=== PATIENT | female | born 1940 | race Caucasian/White ===

== ENCOUNTER 2017-02-25 21:51 | Inpatient (IN) | payer MEDICARE, OTHER ==
[~2017-02-25] VITALS: Ht 165.1 cm; Wt 80.2 kg
[~2017-02-25 21:51] MED LIST: CHLORHEXIDINE GLUCONATE 0.12 % 15ML UDC (PERIDEX ORAL RINSE) MT SCH; IPRATROPIUM 0.5MG/ALBUTEROL 2.5MG INH SOL UD 3ML (DUONEB)(J7620) NEB SCH
[2017-02-25] MEDS ORDERED: SODIUM BICARBONATE 8.4% INJ 50 ML SYRINGE IV STA (22:03)
[2017-02-25] MEDS ORDERED: ATROPINE SULF 1MG/10ML SYRINGE (J0461) IV STA (22:06)
[2017-02-25] MEDS ORDERED: NS 500 ML IV ONE (22:15)
[2017-02-25] MEDS ORDERED: NOREPINEPHRINE BITARTRATE 8 MG in D5W 500 ML IV SCH (22:15)
[2017-02-25 22:22] LABS: BASO # 0.1 K/mm3 (0.0-0.2); EOS # 0.1 K/mm3 (0.0-0.50); EOS % 1.2 % (0.0-3.0); LARGE UNSTAINED CELL # 0.1 K/mm3 (0.0-0.4); LARGE UNSTAINED CELL % 1.8 % (0.0-4.0); LYMPH # 4.9 K/mm3 (1.5-4.5); LYMPH % 61.6 % (24.0-44.0); MEAN CORPUSCULAR HEMOGLOBIN 33.4 pg (27.0-33.0); MEAN CORPUSCULAR HGB CONC 30.4 g/dl (32.0-36.5); MEAN CORPUSCULAR VOLUME 109.8 fl (80.0-96.0); MONO # 0.2 K/mm3 (0.0-0.8); MONO % 1.9 % (0.0-5.0); NEUTROPHILS # 2.6 K/mm3 (1.8-7.7); NEUTROPHILS % 32.5 % (36.0-66.0); PLATELET COUNT, AUTOMATED 124 k/mm3 (150-450); RED CELL DISTRIBUTION WIDTH 12.2 % (11.5-14.5); WHITE BLOOD COUNT 7.9 K/mm3 (4.0-10.0)
[2017-02-25 22:23] LABS: ADD MORPHOLOGY? YES
--- NOTE | 2017-02-25 22:31 | REP ---
Clinical: Chest pain. Comparison: 12/12/2008. Findings: Endotracheal tube approximately 2.3 cm above the andrez. Mediastinum and cardiac silhouette are within normal limits and stable. Lung beatty demonstrate chronic interstitial changes and superimposed left lower lobe and medial right basilar atelectasis cannot be excluded. No effusion. No pneumothorax. Skeletal structures demonstrate left 4th lateral rib fracture and possible right 4th lateral rib fracture. Impression: Suspected basilar atelectasis. Lateral left fourth rib fracture and suspected lateral right fourth rib fracture. Signed by Ramy Beck MD 02/25/2017 10:22 P
[2017-02-25 22:43] LABS: ABG BASE EXCESS -17.5 (-2.0-2.0); ABG TOTAL CO2 17.2 MEQ/L (23.0-31.0)
[2017-02-25 22:45] LABS: CALCIUM LEVEL 9.6 MG/DL (8.8-10.2); CREATININE FOR GFR 1.64 MG/DL (0.55-1.02); GLOMERULAR FILTRATION RATE 32.4 (>39); POTASSIUM SERUM 3.9 MEQ/L (3.5-5.1)
[2017-02-25] MEDS ORDERED: PIPERACILLIN/TAZOBACTAM SOD 3.375 GM in D5W MINI-BAG PLUS 50 ML IV ONE (22:45)
[2017-02-25 22:46] LABS: ABG PARTIAL PRESSURE CO2 73.4 mmHg (35.0-45.0); ABG pH (ARTERIAL) 6.927 UNITS (7.350-7.450)
[2017-02-25 22:52] LABS: HYPOCHROMASIA 1+
[2017-02-25] MEDS ORDERED: OMEP40CA2 PO (23:15)
[2017-02-25] MEDS ORDERED: ASPI81TAEC PO (23:15)
[2017-02-25] MEDS ORDERED: LOSA100T36 PO (23:15)
[2017-02-25] MEDS ORDERED: TUMS500C PO (23:15)
[2017-02-25] MEDS ORDERED: VASOPRESSIN INJ 20 UNITS/ML VIAL As Ordered ONE (23:23)
[2017-02-25] MEDS ORDERED: VASOPRESSIN INJ 20 UNITS in NS 500 ML IV SCH (23:30)
[2017-02-26] VITALS (36 sets, daily range): BP systolic 31–73; BP diastolic 20–49
[2017-02-26] MEDS ORDERED: DOBUTamine 500 MG/250 ML BAG IN D5W (2,000 MCG/ML) (J1250) As Ordered ONE (00:22)
[2017-02-26] MEDS ORDERED: VASOPRESSIN INJ 20 UNITS in NS 500 ML IV SCH (01:00)
[2017-02-26] MEDS ORDERED: NOREPINEPHRINE BITARTRATE 8 MG in D5W 500 ML IV SCH ×2 (01:00→01:19)
[2017-02-26] MEDS ORDERED: DOBUTamine HCL 500,000 MCG in APPROPRIATE DILUENT 1 EA IV SCH (01:00)
[2017-02-26] MEDS ORDERED: PIPERACILLIN/TAZOBACTAM SOD 3.375 GM in D5W MINI-BAG PLUS 50 ML IV SCH ×2 (01:00→03:00)
[2017-02-26] MEDS ORDERED: DOPamine HCL 400 MG in APPROPRIATE DILUENT 1 EA IV SCH ×2 (01:00→01:15)
[2017-02-26] MEDS ORDERED: GLUCOSE 4 GM CHEW TABLET PO PRN (01:15)
[2017-02-26] MEDS ORDERED: GLUCAGON FOR INJ 1 MG VIAL (J1610) SC PRN (01:15)
[2017-02-26] MEDS ORDERED: DEXTROSE 50% 50 ML SYRINGE IV PRN (01:15)
[2017-02-26 01:49] LABS: ABG BASE EXCESS -16.9 (-2.0-2.0); ABG HCO3 14.5 MEQ/L (22.0-26.0); ABG PARTIAL PRESSURE O2 67.9 mmHg (75.0-100.0); ABG STANDARD HCO3 11.4 MEQ/L (22.0-26.0); ABG TOTAL CO2 16.4 MEQ/L (23.0-31.0)
[2017-02-26 01:52] LABS: ABG PARTIAL PRESSURE CO2 62.3 mmHg (35.0-45.0); ABG pH (ARTERIAL) 6.985 UNITS (7.350-7.450)
[2017-02-26] MEDS ORDERED: EPINEPHrine 1MG/10ML SYRINGE 1.5IN ONE (02:01)
[2017-02-26] MEDS ORDERED: DOPamine 400 MG/500 ML BAG IN D5W (800MCG/ML) (J1265) ONE (02:01)
[2017-02-26] MEDS ORDERED: NOREPINEPHRINE 4 MG/4 ML AMP ONE (02:01)
[2017-02-26] MEDS ORDERED: ATROPINE SULF 1MG/10ML SYRINGE (J0461) ONE (02:01)
[2017-02-26] MEDS ORDERED: SODIUM BICARBONATE 8.4% INJ 50 ML SYRINGE ONE (02:01)
[2017-02-26 02:26] LABS: ALBUMIN 1.9 GM/DL (3.2-5.2); ALBUMIN/GLOBULIN RATIO 0.76 (1.00-1.93); BILIRUBIN,TOTAL 0.5 MG/DL (0.2-1.0); CALCIUM LEVEL 7.8 MG/DL (8.8-10.2); CREATININE FOR GFR 1.87 MG/DL (0.55-1.02); GLOMERULAR FILTRATION RATE 27.9 (>39); TOTAL PROTEIN 4.4 GM/DL (6.4-8.2)
[2017-02-26 02:45] LABS: PHOSPHORUS LEVEL 8.9 MG/DL (2.5-4.9)
[2017-02-26] MEDS: HumaLOG INSULIN (NovoLOG) PER UNIT SC SCH ×2 (02:49→05:57)
[2017-02-26] MEDS ORDERED: SODIUM BICARBONATE 8.4% INJ 50 ML SYRINGE IV ONE (03:15)
[2017-02-26] MEDS ORDERED: HumuLIN R (REGULAR) INSULIN (NovoLIN R) **100U/ML** PER UNIT SC ONE (03:15)
[2017-02-26] MEDS: DOPamine HCL 400 MG in APPROPRIATE DILUENT 1 EA IV SCH ×2 (03:22→05:06)
[2017-02-26] MEDS ORDERED: NS 1,000 ML IV ONE (04:30)
[2017-02-26] MEDS ORDERED: HumaLOG INSULIN (NovoLOG) PER UNIT SC ONE (06:00)
[2017-02-26 06:05] LABS: ADD MANUAL DIFFER YES; DIFF SLIDE NUMBER 112; MEAN CORPUSCULAR HGB CONC 30.1 g/dl (32.0-36.5); MEAN CORPUSCULAR VOLUME 109.7 fl (80.0-96.0); PLATELET COUNT, AUTOMATED 116 k/mm3 (150-450); RED CELL DISTRIBUTION WIDTH 12.3 % (11.5-14.5); WHITE BLOOD COUNT 3.2 K/mm3 (4.0-10.0)
--- NOTE | 2017-02-26 06:12 | RO ---
DATE OF PROCEDURE: 02/26/2017 PREOPERATIVE DIAGNOSIS: Pneumothorax. POSTOPERATIVE DIAGNOSIS: Pneumothorax. PROCEDURE: Left chest tube. SURGEON: Dr. Melo Boyce MATERNITY NURSE:None ANESTHESIA: patient was comatose DESCRIPTION OF PROCEDURE: The patient had hypoxia and had a deep sulcus on chest x-ray. I therefore placed a chest tube at bedside urgently as her had given me permission to perform all urgent emergent procedures in order to save her life. The left lateral chest wall was prepped with Betadine. An incision was made in the fifth intercostal space. Metzenbaum forceps were used to spread the tissue, the forceps were placed over the ribs and popped into the pleural space with a lopez air. A #32 Japanese chest tube was then placed and hooked up to suction. There is a positive air leak. This was sutured in place with a mattress suture at 16 cm. A chest x-ray confirmed adequate position. Oxygen saturations improved after placement. Gauze dressing was then placed over the site. There were no observed complications. JARVIS
--- NOTE | 2017-02-26 06:14 | RO ---
DATE OF PROCEDURE: 02/25/2017 PREOPERATIVE DIAGNOSIS: Hypotension. POSTOPERATIVE DIAGNOSIS: Hypotension. PROCEDURE: Left internal jugular vein venous triple-lumen catheter placement. SURGEON: Dr. Melo Boyce MORTGAGE COORDINATOR: None. ANESTHESIA: The patient was comatose on mechanical ventilation. The left internal jugular (IJ) was prepped and draped in a sterile manner with chlorhexidine and full barrier precaution. A time-out was performed identifying correct site and correct procedure with two patient identifiers. The left IJ was then identified under ultrasound and the Shirin syringe was easily passed into the IJ with return of venous blood flow. A wire was fed through the needle easily and the needle was removed. The triple-lumen catheter was then placed via modified Seldinger technique. All three ports returned venous blood flow and flushed easily. This was sutured in at 15 cm. A postprocedure chest x-ray shows adequate placement with the tip of the catheter in the superior vena cava (SVC). There were no observed complications. JARVIS
--- NOTE | 2017-02-26 06:18 | RO ---
DATE OF PROCEDURE: 02/26/2017 PREOPERATIVE DIAGNOSIS: Hypoxia and aspiration. POSTOPERATIVE DIAGNOSIS: Hypoxia and aspiration. PROCEDURE: Endotracheal intubation. SURGEON: Dr. Melo Boyce POWER WASHER: None ANESTHESIA: comatose on vent DESCRIPTION OF PROCEDURE: The patient had a 7.0 endotracheal tube that was placed in the field that was fairly bloody. The patient had hypoxia. I was unable to perform bronchoscopy through the endotracheal tube. Therefore, this was switched over. The patient was extubated. Oxygen saturations remained above 90% bagged. Then, I intubated the patient with a glide scope with a grade one view. An 8.0 endotracheal tube was easily passed through the vocal cords and the stylus was removed. Confirmation was performed with end-tidal CO2 monitoring, auscultation and chest x-ray. There were no observed complications. The endotracheal tube was taped into place at 24 at the lip. MTDD
[2017-02-26 06:28] LABS: INR 13.57
--- NOTE | 2017-02-26 06:28 | RO ---
DATE OF PROCEDURE: 02/26/2017 PREOPERATIVE DIAGNOSIS: Hypotension POSTOPERATIVE DIAGNOSIS: Hypotension PROCEDURE: Left fermoral arterial catheter placement SURGEON: Dr. Melo Boyce PAYROLL BENEFITS CLERK: Dr. Rebeca Mcclelland ANESTHESIA: The patient was comatose on mechanical ventilation. The left femoral artery was prepped and draped in a sterile manner. Chlorhexidine and sterile barrier precaution was used. The Arrow femoral artery kit was used. The needle with syringe was advanced into the femoral artery under ultrasound guidance. There was return of pulsatile blood flow and a wire was fed through the needle. A luis in the skin was made over the wire. The needle was removed. The catheter was placed over the wire via modified Seldinger technique. There continued be a good pulsatile flow. This was hooked up to an arterial monitor. Blood pressure had correlated with peripheral pressure which was severely low, 40 systolic, being on three pressors. No observed complications. The line was sutured in place and an impregnated sterile dressing was placed over the site. JARVIS
[2017-02-26 06:29] LABS: ALBUMIN 1.2 GM/DL (3.2-5.2); ALBUMIN/GLOBULIN RATIO 0.75 (1.00-1.93); BILIRUBIN,TOTAL 0.6 MG/DL (0.2-1.0); CREATININE FOR GFR 2.06 MG/DL (0.55-1.02); GLOMERULAR FILTRATION RATE 24.9 (>39); PHOSPHORUS LEVEL 6.9 MG/DL (2.5-4.9); POTASSIUM SERUM 4.1 MEQ/L (3.5-5.1); TOTAL PROTEIN 2.8 GM/DL (6.4-8.2)
--- NOTE | 2017-02-26 06:38 | CCN ---
DATE: 02/26/2017 TIME SEEN: About 2 a.m. SUBJECTIVE: The patient has been seen and examined at bedside. The patient continues to be intubated and the patient's blood pressure continues to remain low with a mean arterial pressure (MAP) of only in the 40s despite on 4 pressors. Constant presence at the bedside for critical illness was required, the most pressing is the severity of her cardiogenic shock. Her pupils remain fixed and dilated and there has been no significant neurologic recovery. OBJECTIVE: VITAL SIGNS: Temperature 91, pulse 93, respirations 20, blood pressure 54/32. Oxygen was saturating at 95% on ventilator setting volume controlled tidal volume 400, respiratory rate of 16, PEEP of 5, and FiO2 of 100%. GENERAL: The patient continues to be intubated and in comatose, lying in the intensive care unit (ICU) bed with head elevated at 30 degrees. HEENT: The patient does have abrasion to the right forehead. Pupils were fixed and dilated at least 6 mm bilaterally. Mucous membranes moist. NECK: Supple with a left-sided internal jugular triple lumen catheter (IJTLC). Dressing was dry, clean and intact. CARDIOVASCULAR: Tachycardic. Normal S1, S2. LUNGS: Show diffuse rhonchi bilaterally. Chest tube was in place to the left side. Dressing was dry, clean and intact. ABDOMEN: Positive bowel sounds. Soft, nondistended. No peritoneal signs. No ecchymosis. EXTREMITIES: Appear to be cyanotic, which were cold to palpation. NEUROLOGIC: The patient appears to be comatose. LABORATORY DATA: Sodium 137, potassium 5., chloride 103, bicarbonate 19, anion gap 15, BUN 32, creatinine 1.87, GFR 27.9, fasting glucose 526, calcium 7.8, phosphorus 8.9. Total bilirubin 0.5, AST 736, ALT 537. LDH 975. Total CK 686. Total protein 4.4, albumin 1.9. EKG showed RBBB, with widened QRS and with possible ventricular rhythm, however on telemetry she was sinus rhythm CURRENT MEDICATIONS: - Lovenox 40 mg subcutaneous daily - Protonix 40 mg intravenous (IV) daily - Zosyn 3.375 grams IV every eight hours The patient is also currently on Levophed drip, vasopressin drip, dobutamine drip, dopamine drip. She is receiving insulin sliding scale subcutaneously every six hours, as well as hypoglycemic protocol with D50 and Glucagon glucose as needed. ASSESSMENT AND PLAN: A 76-year-old female with past medical history of hypertension and esophageal stenosis presented with: 1. Cardiopulmonary arrest. Blood pressure continues to remain below threshold MAP <65. Continue for dopamine, dobutamine, vasopressin, Norepi drips. Echocardiogram has been performed. Only shows minimal pericardial effusion. No tamponade. Ejection fraction appears to be greater than 60% by visual estimate. However, official report is pending. Will followup. Will continue to trend troponin. Continue to monitor for possible cardiac arrhythmia on telemetry. 2. Cardiogenic shock. Continue dobutamine drip. However, at this point, blood pressure remains low. Mean arterial pressure (MAP) was only around 40. 3. Aspiration pneumonia. Continue Zosyn. 4. Left-sided pneumothorax. Continue to monitor left-sided chest tube. 5. Hitting on the right side of the head. Could not rule out intracranial bleed. The patient could not undergo CT due to unstable. Continue to hold aspirin. 6. Severe metabolic acidosis. Anion gap does show improvement. However, due to patient's blood pressure is below 65, the likelihood for acidosis to improve is low at this point. 7. Acute renal failure appears to be worse. Creatinine is 1.87 from 1.6. We will continue to monitor intake and output. 8. Hyperglycemia with glucose 526. Continue insulin sliding scale, 10 units of regular insulin were given. Will follow. 9. Coma likely secondary to anoxic brain injury. Continue neurologic checks. 10. Shock liver. The patient now has elevated aspartate transaminase (AST) and alanine transaminase (ALT), likely secondary to cardiogenic shock and cardiopulmonary arrest. Continue to trend. 11. Deep venous thrombosis (DVT) prophylaxis with Lovenox. Gastrointestinal (GI) prophylaxis with Protonix. CODE STATUS: DO NOT RESUSCITATE (DNR). The patient's wishes not to resuscitate the patient if she has another cardiac arrest. TOTAL CRITICAL CARE TIME: At least one hour excluding procedure time. The patient has been discussed with attending doctor, Dr. Boyce. My preceptor for this patient encounter was Dr. Boyce. The preceptor was physically present in the room during the encounter and was fully available as needed. All aspects of the patient interview, examination, medical decision making process, and medical care plan development were reviewed and approved by the preceptor. The preceptor is aware and concurs with the plan as stated in the body of this note and will attest to such by his/her co-signature. I, Melo Boyce, conducted and independent history and bedside physical exam and agree with the assessment and plan as outlined above. I do not expect the patient to survive and is at high risk becuase of the severity of her cardiogenic shock. JARVIS
[2017-02-26 06:39] LABS: BANDS 13 % (< 11); HYPOCHROMASIA 3+; NUCLEATED RED BLOOD CELL 1 % (0-0)
--- NOTE | 2017-02-26 07:21 | HPE ---
DATE OF ADMISSION: 02/25/2017 TIME SEEN: Around 22:30. PRIMARY CARE PROVIDER: Dr. Alfred Mendez in [place]. CHIEF COMPLAINT: Cardiopulmonary arrest. HISTORY OF PRESENT ILLNESS: A 76-year-old female with past medical history of hypertension and esophageal stenosis, presented with cardiopulmonary arrest. Critical care pulmonary service was emergently paged at around 10:30. By the time we arrived in the emergency room, the patient was already was intubated in the emergency room and received 10 rounds of epinephrine. According to nursing staff, the patient initially vomited at home and then had cardiac arrest. The patient's started cardiopulmonary resuscitation (CPR) before emergency medical services (EMS) arrival, the patient received one shock initially due to possible ventricular fibrillation (V-fib) versus ventricular tachycardia (V-tac). Afterward, the patient went into PEA and received eight rounds of epinephrine due to patient. While patient was in the emergency room, she received two more rounds of epinephrine. She also received 1 mg of atropine due to heart rate was in the 40s , and 1 ampule of bicarbonate. In addition, the patient received calcium replacement before presentation and also 300 mg of amiodarone, and the patient was placed on dopamine drip at 10 mcg/kg. The patient was placed on mechanical ventilations by the ED. By the time Dr. Boyce and I arrived, the patient was still saturating at 80s and had a repeat chest x-ray which showed a deep sulcus sign on the left side. Therefore, emergent chest tube was placed. The patient's saturation immediately improved afterward, and was then transferred to the intensive care unit (ICU). According to patient's who was present during the resuscitation, who stated the patient only had hypertension and esophageal stenosis which required regular dilation every few years, and according to him, the patient has been feeling heartburn for the past three weeks. In the evening around 7 p.m., the patient felt nauseous and vomiting around 8 p.m., before right before the event. Patient's denies patient has significant cardiac history in the past. However, he stated patient did have abnormal Echo 7 years ago, but cardiac cath afterward was "fine." ALLERGIES: The patient is allergic to PENICILLIN with unspecified reaction. HOME MEDICATIONS: - aspirin 81 mg one tablet by mouth daily - calcium carbonate 1500 mg one tablet by mouth as needed - losartan potassium 50 mg one tablet by mouth twice a day - omeprazole 40 mg one tablet by mouth daily as needed PAST MEDICAL HISTORY: Including hypertension and esophageal stenosis. PAST SURGICAL HISTORY: The patient did have a cardiac catheterization several years ago. According to , the results did not show any significant coronary artery disease. However, the patient did have an abnormal echocardiogram right before the cardiac catheterization. SOCIAL HISTORY: Could not be obtained due to patient was unresponsive. FAMILY HISTORY: Could not be obtained. REVIEW OF SYSTEMS: Could not be obtained due to patient was unresponsive, was likely in coma. PHYSICAL EXAMINATION: VITAL SIGNS: Temperature 91, pulse 93, blood pressure 95/51, oxygen saturation at 85% on mechanical ventilation with volume control at a volume of 360, respiratory rate 18, PEEP 5, FiO2 100%. GENERAL: The patient is intubated and unresponsive. Elderly female who was lying at 30 degrees in the emergency department (ED) bed. HEENT: The patient does have an abrasion at the right side of her forehead. Extraocular motor could not be assessed. The patient, however, does have fixed pupils which were dilated to around 8 mm. Mucous membranes moist. NECK: Supple. No neck lymphadenopathy. LUNGS: The patient has rhonchi in bilateral lung beatty, reduced on the left side. CARDIOVASCULAR: Normal S1, S2. ABDOMEN: Distended. No ecchymosis. Hypoactive bowel sounds. EXTREMITIES: Appear to be cyanotic and cold to touch. No edema. SKIN: Cold and moist. NEUROLOGIC: The patient appears to be comatose and unresponsive to painful stimulation. The patient's pupils were fixed and dilated. LABORATORY DATA: WBC 7.9, hemoglobin 11.4, hematocrit 36.9, with platelet count of 124. MCV of 109.8. Sodium 142, potassium 3.9, chloride 105, bicarbonate 15, anion gap 22, BUN 29, creatinine 1.64, GFR 32.4, fasting glucose 409, calcium 9.6. Total CK 211, CK-MB 7.4, troponin 0.81. BNP was 34.3. The patient had a blood gas done at around 10 p.m. that shows pH of 6.9, pCO2 73.4, pO2 92, with a base excess of -17.5. MICROBIOLOGY: Blood culture times one is currently pending. IMAGING: The patient's initial chest x-ray shows suspected basilar atelectasis, left lateral fourth rib fracture, suspected lateral right fourth rib fracture as well. ASSESSMENT AND PLAN: A 76-year-old female with past medical history of hypertension and esophageal stenosis, presented with: 1. Cardiopulmonary arrest, status post resuscitation with one defibrillation shock, 10 runs of epinephrine, 300 mg of amiodarone, one calcium chloride, 1 mg of atropine, and one ampule of bicarbonate, which helped to achieve ROSC. The patient is currently on dopamine drip at 10 mcg/kg, and still appears to be hypotensive. Therefore, vasopressin was started in addition to dopamine drip that was already running. Later on, Levophed and dobutamine were added as well; however, the patient's blood pressure still stayed low, and mean arterial pressure (MAP) was below 65. 2. Cardiogenic shock. The patient's blood pressure remains low. After resuscitation, cardiogenic shock was suspected. Therefore, dobutamine drip has been started. We will continue to monitor. 3. Aspiration pneumonia due to patient did vomit immediately prior to cardiopulmonary arrest. Will start the patient on Zosyn 3.375 grams intravenous (IV) every eight hours. 4. Left-sided pneumothorax which was found on chest x-ray in the emergency room. The chest x-ray does show deep sulcus sign on the left lung field. Therefore, a chest tube was emergently placed by Dr. Boyce, which helped to improve the patient's oxygen saturation. We will continue to monitor the chest tube. 5. The patient did hit her head when the patient had the cardiopulmonary arrest. CT of the head was not performed due to patient was unstable to go in for CT. We will continue to hold aspirin for now due to possible intracranial bleed. 6. Severe metabolic acidosis as shown on arterial blood gas (ABG) initially with a pH of 6.9, pCO2 73.4, and pO2 92, and a base excess of negative 17.5, likely secondary to cardiogenic shock. We will continue the patient on multiple pressors to help to titrate the patient's blood pressure MAP above 65. 7. Acute renal failure likely secondary to cardiogenic shock. On presentation, the patient's creatinine was 1.64. We will monitor the patient's intake and output with Nicole, and we will rehydrate her as needed. 8. Hyperglycemia likely stress induced. The patient's glucose initially was 409, and 10 units of insulin have been given. Will continue to monitor and continue insulin sliding scale every six hours. 9. Comatose, likely secondary to anoxic brain injury due to cardiopulmonary arrest. Continue neurologic checks. 10. Deep venous thrombosis (DVT) prophylaxis with Lovenox and gastrointestinal (GI) prophylaxis with Protonix. CODE STATUS: The patient is currently DO NOT RESUSCITATE (DNR). Advanced life support was discussed with the patient's , and he agrees not to resuscitate the patient if patient has another cardiopulmonary arrest. DISPOSITION: The patient's prognosis is extremely poor. We do not expect the patient to live past 24 hours. TOTAL CRITICAL CARE TIME: Greater than one hour, excluding procedure time. The patient has been discussed with attending doctor, Dr. Boyce. My preceptor for this patient encounter was Dr. Boyce. The preceptor was physically present in the room during the encounter and was fully available as needed. All aspects of the patient interview, examination, medical decision making process, and medical care plan development were reviewed and approved by the preceptor. The preceptor is aware and concurs with the plan as stated in the body of this note and will attest to such by his/her co-signature. I, Melo Boyce, was present for the entire history and physical. I conducted an independent exam and assessment and plan was reviewed as outlined above. I agree with what has been outlined by Dr. Rebeca Mcclelland. JARVIS
--- NOTE | 2017-02-26 07:55 | REP ---
Clinical: Chest tube placement. Comparison: 02/25/2017. Findings: Endotracheal tube approximately 4 cm above the andrez. Left IJ line with tip in the SVC. Left chest tube overlies the left mid lung zone. No obvious pneumothorax appreciated. Perihilar and left lower lobe infiltrate suggested. Impression: Lines and tubes as above. Perihilar and left lower lobe infiltrates suggested. Signed by Ramy Beck MD 02/26/2017 07:47 A
--- NOTE | 2017-02-26 07:56 | REP ---
Clinical: Status post chest tube placement. Comparison: 02/26/2017 at 12:02 a.m.. Findings: The exact position of the ETT is incompletely evaluated due to overlying cardiac leads. Left IJ line with tip in the SVC. A nasogastric tube courses below left hemidiaphragm. Left-sided chest tube overlies the lower lung zone. Bilateral infiltrates primarily noted in the right perihilar and upper lobe as well as left perihilar and lower lobe identified. No obvious pneumothorax. Skeletal structures are grossly unremarkable and the previously noted rib fractures are poorly identified on current exam due to positioning. Impression: Lines and tubes as described above. Bilateral infiltrates. No obvious pneumothorax. Signed by Ramy Beck MD 02/26/2017 07:48 A
--- NOTE | 2017-02-26 07:58 | REP ---
Clinical: Line placement. Comparison: 02/25/2017. Findings: Endotracheal tube approximately 2.4 cm above the andrez. Left IJ line with tip in the SVC. Perihilar and left lower lobe opacities are suggested. No obvious effusion or pneumothorax. Skeletal structures are grossly stable. Left upper rib fracture again noted. Impression: Perihilar and left lower lobe infiltrates. Stable examination. Signed by Ramy Beck MD 02/26/2017 07:50 A
[2017-02-26] MEDS ORDERED: ENOXAPARIN 40 MG/0.4 ML SYRINGE (J1650) SC SCH (09:00)
[2017-02-26] MEDS ORDERED: PANTOPRAZOLE 40MG INJ (PROTONIX) (C9113) IV SCH (09:00)
--- NOTE | 2017-02-26 09:44 | DSES ---
DATE OF ADMISSION: 02/25/2017 DATE OF DISCHARGE: 02/26/2017 TIME PATIENT WAS SEEN: This morning around 4:00 a.m. PRIMARY CARE PROVIDER: Thad Samnao ADMISSION DIAGNOSES: 1. Cardiopulmonary arrest. 2. Cardiogenic shock. 3. Aspiration pneumonia. 4. Left sided pneumothorax. 5. Severe metabolic acidosis. 6. Acute renal failure. 7. Shock liver. 8. Coma. DISCHARGE DIAGNOSES: 1. Patient . 2. Cardiopulmonary arrest. 3. Cardiogenic shock. 4. Aspiration pneumonia. 5. Left sided pneumothorax. 6. Severe metabolic acidosis. 7. Acute renal failure. 8. Shock liver. 9. Coma. CONSULTANTS: None. PROCEDURES AND IMAGIN. On 02/25/2017, the patient had a left chest tube placement by Dr. Boyce. 2. On 02/25/2017, the patient had a left IJ triple lumen catheter (TLC) placement by Dr. Boyce. 3. On 02/26/2017, the patient had an ET tube exchange by Dr. Boyce and removal of ET tube. 4. On 02/26/2017, the patient had an arterial line placement by Dr. Boyce. HISTORY OF PRESENT ILLNESS: 76-year-old female with past medical history of hypertension and esophageal stenosis who presented with cardiopulmonary arrest. Critical care pulmonary services were emergently paged at around 10:30. By the time we arrived to the emergency room, the patient was already intubated and s/ p 3 rounds of CPR. The patient's started cardiopulmonary resuscitation (CPR) before EMS arrival. The patient received one shock in field with AED with possible ventricular tachycardia or ventricular fibrillation. Afterward, the patient received eight rounds of epinephrine due to pulseless electrical activity (PEA) and bradycardia. In the emergency room, the patient also received two rounds of epinephrine due to bradycardia and also received 1 mg of Atropine and bicarbonate. In addition, she also received calcium and amiodarone by the EMS. She was also started on dopamine drip in the emergency room. She was intubated in the emergency department (ED) and on mechanical ventilation. When Dr. Boyce arrived, the patient was found to have a deep sulcus on the chest x-ray, therefore, a chest tube was placed for left sided pneumothorax. Afterward, the patient was moved to the intensive care unit (ICU) . The was present throughout much of the resuscitation. According to him, the patient has hypertension and esophageal stenosis at baseline. She also had a nonsignificant cardiac catheterization seven years ago; however, did have abnormal echocardiogram before then. The patient also felt heartburn for the past three weeks before the event. HOSPITAL COURSE: Once the patient was in the ICU, the patient was started on dobutamine drip in addition to dopamine drip and vasopressin. In addition, Levophed drip was started as well to help to maintain patient's blood pressure. However, the patient's mean arterial pressure (MAP) remained in the 40s. The patient's had been updated on the prognosis and the patient's situation. He had agreed not to resuscitate the patient if she has another cardiac arrest. In addition, the patient was found to be having severe metabolic acidosis, shock liver and acute renal failure. Around 6:45 this morning, the patient had asystole and subsequently while the patient's family was at bedside. DISCHARGE CONDITION: Patient . Discharged to the [facility]. Autopsy has been requested. The patient has been discussed with attending doctor, Dr. Boyce. My preceptor for this patient encounter was Dr. Melo Boyce. The preceptor was physically present in the room during the encounter and was fully available. As needed, all aspects of the patient interview, examination, medical decision making process, and medical care plan development were reviewed and approved by the preceptor. The preceptor is aware and concurs with the plan as stated in the body of this note and will attest to such by his/her cosignature. I, Melo Boyce, examined the patient and was at her bedside for multiple hours of critical care. I had referred to the medical research scientist for autopsy and it was refused. I then referred to our pathology department however the patient's family refused consent. Therefore despite my request for an autopsy none was performed. JARVIS
--- NOTE | 2017-02-26 17:13 | ECHO ---
DATE OF PROCEDURE: 02/26/2017 DATE OF : 1940 AGE: 76 GENDER: Female. HEIGHT: 64 INCHES WEIGHT: 187 pounds. BODY SURFACE AREA: 1.9 meters squared/. INPATIENT: Intensive care unit (ICU), Room 3210 REFERRING PHYSICIAN: Dr. Boyce INDICATION: Status post cardiac arrest. MEASUREMENTS 2D measurements: RV: 3.8 cm LV: 4.3 cm Septum: 1.2 cm Posterior wall: 1.2 cm Aortic root: 3.2 cm LA: 3.8 cm LVEF: 75% Doppler measurements: MV-E: 41, A: 50, EA ratio: 0.8 RVSP: 26 IVC: 1.8 cm COMMENTS: Normal sinus rhythm with intraventricular conduction disturbance. Technically difficult study with the patient in the intensive care unit on a mechanical ventilator and having a chest tube inserted on the left side of her chest. Heart chamber sizes appear to be within normal limits. LV wall thickness was upper limits of normal to mildly hypertrophied. On real-time imaging from the parasternal and apical projections, wall motion appeared to be symmetrical and hyperkinetic. Slightly thickened mitral annulus but fairly normal leaflet excursion. Slight thickening of the aortic cusps with adequate cusp separation but could not determine the precise number of aortic cusps. Normal aortic root size. No visible intracardiac mass. No pericardial effusion. Color flow Doppler study taken from the parasternal and apical projection showed no apparent mitral, or aortic and only trace tricuspid insufficiency. Pulsed Doppler study taken from the apical four-chamber projection showed normal diastolic filling velocities against mitral stenosis. There was slightly more prominent late diastolic/atrial dependent filling pattern suggestive of a degree of LV diastolic dysfunction. Guided continuous wave Doppler of her tricuspid valve allowed our estimation of her right ventricular systolic pressure (her inferior vena cava was normal in size). Further estimation of central venous pressure is not possible with the patient on mechanical ventilator. CONCLUSIONS: Technically difficult study, as mentioned above. Borderline left ventricle hypertrophy with hyperkinetic wall motion. No evidence of localized wall motion abnormalities to suggest infarction. Left atrial size upper limits of normal with subtle Doppler sign of a degree of impaired LV diastolic function, but this would not be outside normal limits for her age alone. Normal right heart chamber sizes with normal contraction and estimated pulmonary arterial pressure upper limits of normal. IVC size was not dilated to suggest elevated central venous pressure. No pericardial effusion. Dr. Boyce had the opportunity to view these images personally at the time the study was performed at 2:00 a.m. this morning.
--- NOTE | 2017-02-27 20:46 | ECGEPIP ---
Stationary ECG Study [facility] - ED Test Date: 2017-02-25 Pat Name: ANGELITA COX Department: Room: [place] [address] Gender: F Clinical Training Specialist: : 1940 Requested By: SHEY Sweet Order Number: [id number] Reading MD: Janie Haji Measurements Intervals [place] Rate: 82 P: [place]: 0 QRS: 206 QRSD: 214 T: 120 QT: 428 QTc: 500 Interpretive Statements ATRIAL FIBRILLATION MARKED RIGHT AXIS DEVIATION RIGHT BUNDLE BRANCH BLOCK NO PRIOR FOR COMPARISON Electronically Signed On 02-27-2017 20:46:07 EDT by Janie Haji
== END 2017-02-26 06:40 | disposition expired | DRG 252 ==
LOC: EDBD 21:51 → M ED 21:51 → M ED INP 23:56 → M ICU 02-26 00:04
PROVIDERS: ADMIT Internal Medicine Pulmonary Disease; ATTEND Internal Medicine Pulmonary Disease
PROC: 04HL3DZ Insertion of Intraluminal Device into Left Femoral Artery, Percutaneous Approach (ICD-10-PCS; principal; 2017-02-26)
PROC: 5A1935Z Respiratory Ventilation, Less than 24 Consecutive Hours (ICD-10-PCS; 2017-02-26)
PROC: 02HV33Z Insertion of Infusion Device into Superior Vena Cava, Percutaneous Approach (ICD-10-PCS; 2017-02-26)
PROC: 0BH17EZ Insertion of Endotracheal Airway into Trachea, Via Natural or Artificial Opening (ICD-10-PCS; 2017-02-26)
PROC: 0W9B30Z Drainage of Left Pleural Cavity with Drainage Device, Percutaneous Approach (ICD-10-PCS; 2017-02-26)
DX: I46.9 Cardiac arrest, cause unspecified (principal); J69.0 Pneumonitis due to inhalation of food and vomit; R40.20 Unspecified coma; K72.00 Acute and subacute hepatic failure without coma; J93.9 Pneumothorax, unspecified; I62.9 Nontraumatic intracranial hemorrhage, unspecified; E87.2 Acidosis; N17.9 Acute kidney failure, unspecified; G93.1 Anoxic brain damage, not elsewhere classified; Z66 Do not resuscitate; R73.9 Hyperglycemia, unspecified; R57.0 Cardiogenic shock; I10 Essential (primary) hypertension; K22.2 Esophageal obstruction; Z88.0 Allergy status to penicillin; Z79.82 Long term (current) use of aspirin; Z79.899 Other long term (current) drug therapy